=== PATIENT | male | born 1960 | race Caucasian/White ===

== ENCOUNTER 2018-06-28 17:15 | Emergency (ER) | payer OTHER ==
[~2018-06-28] VITALS: Ht 182.9 cm; Wt 81.6 kg
[2018-06-28] MEDS ORDERED: CRESTOR20 MG (17:59)
[2018-06-28] MEDS ORDERED: ACTOS30 MG (18:00)
[2018-06-28] MEDS ORDERED: OPTIMAL D350000 UNIT (18:00)
[2018-06-28] MEDS ORDERED: FORTAMET500 MG (18:01)
[2018-06-28] MEDS ORDERED: PRINIVIL20 MG (18:01)
[2018-06-28] MEDS ORDERED: TAMS0.4C (18:01)
== END 2018-06-28 20:29 | disposition home or self-care (01) ==
LOC: ER 17:15
DX: R07.89 Other chest pain (principal); R06.02 Shortness of breath